=== PATIENT | male | born 1965 | race Caucasian/White ===

== ENCOUNTER 2025-02-16 16:58 | Emergency (ER) | payer OTHER, SELFPAY ==
[2025-02-16 17:04] VITALS: BP 143/83; PULSE 84; RESP 16; TEMP 36.4; O2SAT 96; BMI 33.2
--- OUTSIDE RECORDS SUMMARY | 2025-02-16 17:05 | XMS_ITS | Encounter Summary ---
Author Organization [facility] of [facility] and Its Subsidiaries and Affiliates Address [address] [address] [place] [address] Care Team Providers Care Hydraulic Boom Operator Name Role Phone Pcp, Not Known Primary Care Provider Unavailabl e Encounter Details Date Type Department Care Team (Late st Contact Info) Description 07/27/2022 Procedure Pass [facility] [address] [facility] [place] [id number] Social History Tobacco Use Types Packs/Day Years Used Date Smoking Tobacco: Never Smokeless Tobacco: Never Alcohol Use Standard Drinks/Week Comments Not Currently 0 (1 standard drink = 0.6 oz pur e alcohol) 2-3 drinks weekly Sex and Gender Information Value Date Recorded Sex Assigned at Not on file Legal Sex Male 10:45 PM CDT Gender Identity Not on file Sexual Orientation Not on file COVID-19 Exposure Response Date Recorded In the last 10 days, have yo u been in contact with someone who was confirmed or suspected to have Coronavirus/COVID-19? No / Unsure 07/27/2022 12:35 AM CORRESPONDENCE SPECIALIST documented as of this encounter Plan of Treatment Not on file documented as of this encounter Visit Diagnoses Not on filedocumented in this encounter Additional Health Concerns Infection Onset Date Last Indicated Resolved Time Rule Out COVID-19 06/26/2023 06/26/2023 06/26/2023 11:28 AM CORRESPONDENCE SPECIALIST documented as of this encounter Care Teams Hydraulic Boom Operator Relationship Specialty Start Date End Date Pcp, Not Known PCP - General 10/05/22 documented as of this encounter
--- OUTSIDE RECORDS SUMMARY | 2025-02-16 17:05 | XMS_ITS | Patient Health Record ---
Author Organization [facility] Address [address] [facility] [address] [place] [address] Care Team Providers Care Shaft Headman Name Role Phone Self, Self Primary Care Provider Unavailabl e Allergies No Known Allergies Reason For Referral No Information Medications Medication SIG (Take, Route, Fr equency, Duration) Notes Start Date End Date Status Cephalexin 500 MG 1 capsule Orally Twi ce a day for 10 03/06/2023 Active Tamsulosin HCl 0.4 MG TAKE 1 CAPSULE BY MOUTH EVERY DAY Oral for 90 Days Active Meloxicam 15 MG Oral for 90 Days Active Social History Tobacco Use: Social History Observation Description Date Details (start date - stop date) Never Smoker NA - NA *DO NOT USE*Tobacco Use/Smoking Question Answer Notes Are you a nonsmoker Plan Of Treatment No Information Insurance Providers Payer Name Payer Address Payer Phone Subscriber Number Group Number Insured Name Patient Relationship to Insured Coverage Start Date Coverage End Date [facility] [address] [place] [address] [id number] Mark Catalan Self - patient is the insured
--- OUTSIDE RECORDS SUMMARY | 2025-02-16 17:05 | XMS_ITS | Clinical Summary ---
Author Organization Therese Suffolkkirby miller of [facility] and Its Subsidiaries and Affiliates Address [address] [address] [place] [address] Care Team Providers Care Lumber Carrier Operator Name Role Phone Pcp, Not Known Primary Care Provider Unavailabl e Allergies No known active allergies Medications * Be aware that medications may not be up to date as of this document.Always verify current medications with patient. tamsulosin (FLOMAX) 0.4 mg Capsule Take 1 capsule by mouth in the morning. Active cholecalciferol (Vitamin D3) 50 mcg (2,000 unit) Tablet Take 1 tablet by mouth. 05/11/2024 Active azithromycin (ZITHROMAX) 250 mg tablet Take 1 tablet by mouth in the morning. Take 2 tablets (500mg) once today (on Day1), followed by 1 tablet (250mg) once daily on Day 2 through 5. 6 tablet 08/14/2024 Active Active Problems Problem Noted Date Diagnosed Date Other chest pain 10/05/2022 Family History Medical History Relation Comments Suicidality Father Cancer Mother Relation Status Comments Father Mother Social History Tobacco Use Types Packs/Day Years Used Date Smoking Tobacco: Never Smokeless Tobacco: Never Tobacco Cessation:Counseling Given: Not Answered Alcohol Use Standard Drinks/Week Comments Yes 0 (1 standard drink = 0.6 oz pur e alcohol) 2-3 drinks weekly Sex and Gender Information Value Date Recorded Sex Assigned at Not on file Legal Sex Male 10:45 PM CDT Gender Identity Not on file Sexual Orientation Not on file Last Filed Vital Signs Vital Sign Reading Time Taken Comments Blood Pressure 106/55 08/14/2024 1:53 PM COMFORT ADVISOR Pulse 73 08/14/2024 1:53 PM COMFORT ADVISOR Temperature 36.2 C (97.2 F) 08/14/2024 1:53 PM COMFORT ADVISOR Respiratory Rate 18 08/14/2024 1:53 PM COMFORT ADVISOR Oxygen Saturation 98% 08/14/2024 1:53 PM COMFORT ADVISOR Inhaled Oxygen Concentration - - Weight 111.1 kg (245 lb) 06/26/2023 10:59 AM COMFORT ADVISOR Height 182.9 cm (6') 06/26/2023 10:59 AM COMFORT ADVISOR Body Mass Index 33.23 06/26/2023 10:59 AM COMFORT ADVISOR Plan of Treatment Health Maintenance Due Date Last Done Comments CT Colonography 1965 Cologuard 1965 Colonoscopy 1965 Colorectal Cancer Screening 1965 DIABETIC FOOT EXAM 1965 DIABETIC RETINAL EXAM 1965 FIT 1965 FOBT 1965 Flexible Sigmoidoscopy 1965 HEMOGLOBIN A1C 1965 Hepatitis C Screening 1981 Pneumococcal Vaccine: 50+ Years (1 of 1 - PCV) 2013 ZOSTER VACCINE (2 of 2) 08/05/2022 06/10/2022 COVID-19 Vaccine (1 - 2023-2 5 season) 2024 INFLUENZA VACCINE 03/16/2025 06/10/2022, 05/18/2020 RSV Vaccines (1 - 1-dose 75+ series) 2038 RSV UNDER 20 MONTHS Aged Out No longe r eligible based on patient's age to complete this topic Insurance [facility] Care Teams Lumber Carrier Operator Relationship Specialty Start Date End Date Pcp, Not Known PCP - General 10/05/22
--- OUTSIDE RECORDS SUMMARY | 2025-02-16 17:05 | XMS_ITS | Encounter Summary ---
Author Organization [facility] and Its Subsidiaries and Affiliates Address [address] [address] [place] [address] Care Team Providers Care Packing Attendant Name Role Phone Pcp, Not Known Primary Care Provider Unavailabl e Encounter Details Date Type Department Care Team (Late st Contact Info) Description 10/05/2022 [facility] Returned Goods Inspector [address] [place] [address] Social History Tobacco Use Types Packs/Day Years Used Date Smoking Tobacco: Never Smokeless Tobacco: Never Alcohol Use Standard Drinks/Week Comments Yes 0 [...] suspected to have Coronavirus/COVID-19? No / Unsure 10/05/2022 10:08 AM LEASE BUYER documented as of this encounter Plan of Treatment Not on file documented as of this encounter Visit Diagnoses Not on filedocumented in this encounter Additional Health Concerns Infection Onset Date Last Indicated Resolved Time Rule Out COVID-19 06/26/2023 06/26/2023 06/26/2023 11:28 AM LEASE BUYER documented as of this encounter Care Teams Packing Attendant Relationship Specialty Start Date End Date Pcp, Not Known PCP - General 2/20/23 documented as of this encounter
--- OUTSIDE RECORDS SUMMARY | 2025-02-16 17:05 | XMS_ITS | Patient Health Record ---
Author Organization [facility] Address [address] [place], [place] [id number] Care Team Providers Care Boring Mill Set Up Operator Vertical Name Role Phone Eleno WALLS Primary Care Provider Unavailab blair Rodriguez MD, Valdez Unavailable [phone] Reason For Referral No Information Medications Medication SIG (Take, Route, Frequency, Duration) Notes Start Date End Date Status Robaxin 500 mg 1 tab orally QHS, MO N for 5 day(s) Active naproxen 500 mg 1 tab orally BID, MO N with food for 30 day(s) Active niacin 250 mg 1 tab orally QHS for 30 day(s) Active omega-3 polyunsaturated fatt y acids 1000 mg 2 caps orally BID for 30 day(s) Active omeprazole 20 mg 1 cap orally QAM for 30 day(s) Active raNITIdine 150 mg 1 tab orally 2 times a day for 30 day(s) Active Problems Problem Type SNOMED Code ICD Code Onset Dates Problem Status W/U Status Risk Notes Problem Spasm (81958679) Muscle spasm (728.85) Active confirmed Problem Sleep dysfunction with sleep stage disturbance (771579070) Dysfunctions associated with sleep stages or arousal from sleep (780.56) Active confirmed Problem Long-term drug therapy (617090905) LONG-TERM USE MEDS NEC (V58.69) Active confirmed r/o substance abuse Problem Displacement of cervical intervertebral disc without myelopathy (30214347) Cervical (w/out myelopathy) intervertebral disc disorder (722.0) Active confirmed Problem Neck pain (56983906) Neck pain (723.1) Active confirmed Plan Of Treatment No Information Insurance Providers Payer Name Payer Address Payer Phone Subscriber Number Group Number Insured Name Patient Relationship to Insured Coverage Start Date Coverage End Date [facility] [address] [place] [id number] Mark Caatlan Jr. Self - patient is the insured Medical (General) History Medical History History ICD Code Neck pain Headache Seborrheic keratosis Arthritis Hyperlipidemia Elevated LFT Hemorrhoids Shoulder pain Chest pain Gastroesophageal reflux disease Right shoulder impingement Hospitalization History Reason Date(Month/Year) Concussion, due to a fall ([place]) 2004
[2025-02-16] MEDS: lidocaine 2% INJ 20 mL INJECTION (19:51)
--- NOTE | 2025-02-16 19:59 | W.ED.WOUNDLC ---
HPI - Wound/Laceration General: Chief Complaint: Wound/Laceration Stated Complaint: Filet knife in hand, deep cut Time Seen by Provider: 02/16/25 17:29 History of Present Illness: 59-year-old male patient presents to the emergency department with a laceration to the palmar surface of his left hand. Patient states he punctured it with a knife. Patient has full range of motion. Patient states his tetanus is not up-to-date. Patient arrives with bleeding controlled Related Data Home Medications ?Medication ?Instructions ?Recorded ?Confirmed tamsulosin 0.4 mg capsule 0.4 mg PO DAILY 02/16/25 02/16/25 Allergies Allergy/AdvReac Type Severity Reaction Status Date / Time No Known Allergies Allergy Verified 02/16/25 17:10 Review of Systems General: Reports: 10 or more systems reviewed and unremarkable except in HPI and below Physical Exam Narrative: EXAM NARRATIVE: 1 cm linear laceration to the palmar surface of the left hand neurovascularly intact distally full range of motion Const: COMMON NORMALS: no acute distress, patient oriented x3, no limitations, alert and well nourished Resp: COMMON NORMALS: normal respiratory effort Cardio: COMMON NORMALS: regular rate RATE: regular rate Neuro: COMMON NORMALS: patient oriented x3 SENSORIUM/ORIENTATION: Yes alert Procedures Laceration Laceration 1: Site: hand Side (If applicable): left Size (cm): 1 Description: linear Local Anesthetic: lidocaine 1% Amount of anesthesia used (mL): 3 Pre-repair: wound explored and irrigated extensively Skin layer closed with: nylon Size (cm): 5-0 Number of sutures: 3 Technique: simple, interrupted Course Vital Signs: Vital signs: Vital Signs Temperature 97.5 F L 02/16/25 17:04 Pulse Rate 84 02/16/25 17:04 Respiratory Rate 16 02/16/25 17:04 Blood Pressure 143/83 02/16/25 17:04 Pulse Oximetry 96 02/16/25 17:04 Oxygen Delivery Me thod Room Air 02/16/25 17:04 MDM - Wound/Laceration Medical Decision Making 59-year-old male patient presents to the emergency department with a laceration to the palmar surface of his left hand. Patient states he punctured it with a knife. Patient has full range of motion. Patient states his tetanus is not up-to-date. Patient arrives with bleeding controlled patient is neurovascularly intact distally patient has good battery recharger strength patient has full range of motion. Tetanus was updated at today's visit I do not feel antibiotics are warranted at this time. Please see procedure note for laceration repair I did review home care instructions with patient as well as follow-up and return precautions patient is medically cleared and appropriate for discharge No radiology studies performed this visit Discharge Plan Discharge Patient Disposition: Home Clinical Impression: Laceration Condition: Stable Prescriptions: No Action tamsulosin 0.4 mg capsule 0.4 mg PO DAILY Discharge Orders: Discharge ED (Routine); Ordered 02/16/25 Ordered By: Syeda Milian Patient Instructions: Opioid Safety, Pain Management, Patient Portal & Javi Instructions, Laceration (ED), Laceration (DC) Activity Restrictions/Additional Instructions: Please return to the emergency department in 8 to 10 days for suture removal or sooner if there is any evidence of infection such as increased erythema drainage from the site or any other concerns. Please follow wound care instructions as provided Print Language: Austrian Coding Level of Care Code ED Dynamics Ax Solution Architect for Hannah Hicks
[2025-02-16] MEDS: tetanus-diphtheria tox (adult) 0.5 mL SDV IM (20:13)
== END 2025-02-16 20:21 | disposition home or self-care (01) ==
PROVIDERS: Emergency Provider Registered Nurse
DX: S61.412A Laceration without foreign body of left hand, initial encounter (principal); W26.0XXA Contact with knife, initial encounter
CPT/HCPCS: 12001; 90471; 90714; 99283; J9999

== ENCOUNTER 2025-08-11 13:52 | Emergency (ER) | payer OTHER, SELFPAY ==
--- OUTSIDE RECORDS SUMMARY | 2024-10-16 02:00 | XMS_ITS ---
Author Organization [facility] Address [address] [facility] [address] [place] [address] Care Team Providers Care Outside Sales Representative Name Role Phone Thanh Grupo Unavailable [phone] Mary Fischer Unavailable Unavailab le Encounters Encounter Location Date Provider Diagnosis [facility] [address] [place] [address] 10/16/2024 Grupo Law Plan Of Treatment No Information Progress Notes * Agata CATALAN JRhDOB: [birth year] (60 yo M)Acc No.[id number]:10/16/2024 Patient: Lauren Mark cano Jr Provider: Lauren Law MD :1965 A ge:59 Y S ex:Male Date:10/16/2024 Address:[address] [place], [place] [id number] * Electronic signature of Dakota Law on 08/11/2025 at 02:00 PM FLORAL ARRANGER Sign off status: Pending * Provider: Lauren Law MD Date: 0 10/16/2024 Generated for Rci suzanne/Petros/eTransmitting on: 1 10/12/2024 02:00 PM FLORAL ARRANGER
--- OUTSIDE RECORDS SUMMARY | 2025-01-20 03:00 | XMS_ITS ---
Author Organization [employer] Address [address] [facility] [address] [place] [address] Care Team Providers Care Middle School Assistant Principal Name Role Phone Grupo Law Unavailable [phone] Mary Fischer Unavailable Unavailab le Migration, Provider Unavailable Unavailable REASON FOR VISIT EMR-Tommy Encounters Encounter Location Date Provider Diagnosis Migrated_Facility 0 0 01/20/2025 Provider Migration Plan Of Treatment Medication Medication Name Sig Start Date Stop Date Notes DULoxetine HCl 60 MG Capsule Delayed Release Particles 1 capsule by mouth once a day Oral 09/29/2022 Tamsulosin HCl 0.4 MG Capsule Oral Meloxicam 15 MG Tablet Oral 09/29/2022 Ondansetron HCl 8 MG Tablet Oral 09/28/19 23 Vitamin D3 10 MCG (400 UNIT) Tablet Oral 09/29/2022 HYDROcodone-Acetaminophen 10-325 MG Tablet Oral 09/28/2022 Nitroglycerin 0.[address] 1 tablet under tongue as needed for chest pain; max 3 doses; ER with unrelieved cp Sublingual 09/29/2022 10/14/2023 Progress Notes * Agata CATALAN JRhDOB: [birth year] (60 yo M)Acc No.[id number]:01/20/2025 Patient: Lauren Mark POP JR :1965 A ge:59 Y S ex:Male Address:[address] [place], [place] [address], [address] * Refills Stop HYDROcodone-Acetaminophen Tablet, 10-325 MG, Oral Stop Meloxicam Tablet, 15 MG, Oral Stop Ondansetron HCl Tablet, 8 MG, Oral Stop HYDROcodone-Acetaminophen Tablet, 10-325 MG, Oral Stop Nitroglycerin Tablet Sublingual, 0.4 MG, Sublingual, Place 1 tablet under tongue as needed for chest pain; max 3 doses; ER with unrelieved cp Stop DULoxetine HCl Capsule Delayed Release Particles, 60 MG, Oral Stop Vitamin D3 Tablet, 10 MCG (400 UNIT), Oral Stop Vitamin D3 Tablet, 10 MCG (400 UNIT), Oral Stop Ondansetron HCl Tablet, 8 MG, Oral Stop DULoxetine HCl Capsule Delayed Release Particles, 60 MG, Oral, 1 capsule by mouth once a day Stop Meloxicam Tablet, 15 MG, Oral Stop Nitroglycerin Tablet Sublingual, 0.4 MG, Sublingual, Place 1 tablet under tongue as needed for chest pain; max 3 doses; ER with unrelieved cp Stop Tamsulosin HCl Capsule, 0.4 MG, Oral Subjective: * Chief Complaints: * E MR-Tommy * * Date:
--- OUTSIDE RECORDS SUMMARY | 2025-01-21 03:00 | XMS_ITS ---
Author Organization [employer] [facility] Address [address] [facility] [place] [facility] [address] [place] [address] Care Team Providers Care Technology Analyst Name Role Phone Grupo Law Unavailable [phone] Mary Fischer Unavailable Unavailab le Migration, Provider Unavailable Unavailable Allergies No Known Allergies REASON FOR VISIT EMR-Tommy Medications Medication SIG (Take, Route, Frequency, Duration) Notes Start Date End Date Status GoodSense Aspirin 81 MG Tablet Chewable Take 1 tablet by mouth once a day Oral 09/29/2022 Active Tamsulosin HCl 0.4 MG Capsule 1 capsule by mouth once a day Oral Active Multi-Vitamin HP/Minerals - Capsule 1 capsule by mouth once a day Oral Active Social History Social History Additional Details Category Social Info Options Details Migrated Social History Migrated Social History alcohol use : yes , chewing tobacco use : Never , drug use : no , if the patient is using/has used a vaping item, Current, Former, Never Used, Not asked : Never , passive cigarette smoke exposure : no , personal history of marijuana use : no , smoking status : Never smoker , social history : Patient has never smoked.; Patient has never used smokeless tobacco.; Patient has never used vaping / e-cigarette.; Passive Smoke: N; Alcohol Use: Y; Drug Use: N; Marijuana Use: N; HIV/High Risk: N; Regular Exercise: Y; Hx Domestic Abuse: N; Anabaptist Affecting Care: N; Sexually Active: N Encounters Encounter Location Date Provider Diagnosis Migrated_Facility 0 0 01/21/2025 Provider Migration Plan Of Treatment No Information Progress Notes * Agata CATALAN JRhDOB: [birth year] (60 yo M)Acc No.[id number]:01/21/2025 Patient: Mark ALMEIDA JR :1965 A ge:59 Y S ex:Male Address:[address] [place] [address] Subjective: * Chief Complaints: * E MR-Tommy * Medical History: Cataracts Enlarge prostate Migraines * Surgical History: Colonoscopy 07/16/2018 (normal study) PAST SurgHX Till 10/12/2022 [facility] 10/05/2022 PAST SurgHX Till 10/12/2022 LT eye cataracts removed 01/03/2019 PAST SurgHX Till 10/12/2022 RT eye cataracts removed 01/14/2021 PAST SurgHX Till 10/12/2022 * Family History: F ather: Hypertension : .. M igrated Family History: : family history : mother D54 -lung cafather D55- htnbrother 1L-healthysister 1L-cancer(remission) . * Social History: M igrated Social History: M igrated Social History: alcohol use : yes , chewing tobacco use : Never , drug use : no , if the patient is using/has used a vaping item, Current, Former, Never Used, Not asked : Never , passive cigarette smoke exposure : no , personal history of marijuana use : no , smoking status : Never smoker , social history : Patient has never smoked.; Patient has never used smokeless tobacco.; Patient has never used vaping / e-cigarette.; Passive Smoke: N; Alcohol Use: Y; Drug Use: N; Marijuana Use: N; HIV/High Risk: N; Regular Exercise: Y; Hx Domestic Abuse: N; Anabaptist Affecting Care: N; Sexually Active: N. * Medications: T akingTamsulosin HCl 0.4 MG Capsule 1 capsule by mouth once a day Oral GoodSense Aspirin 81 MG Tablet Chewable Take 1 tablet by mouth once a day Oral Multi- Vitamin HP/Minerals - Capsule 1 capsule by mouth once a day Oral Taking Tamsulosin HCl 0.4 MG Capsule 1 capsule by mouth once a day Oral Taking GoodSense Aspirin 81 MG Tablet Chewable Take 1 tablet by mouth once a day Oral Taking Multi-Vitamin HP/Minerals - Capsule 1 capsule by mouth once a day Oral * Allergies: N .K.D.A. * * Date:
--- OUTSIDE RECORDS SUMMARY | 2025-08-11 14:00 | XMS_ITS | Patient Health Record ---
Author Organization [facility] Address [address] [address] Care Team Providers Care Monkey Trainer Name Role Phone Self, Self Primary Care Provider Unavailabl e Allergies No Known Allergies Reason For Referral No Information Medications Medication SIG (Take, Route, Frequency, Duration) Notes Start Date End Date Status Cephalexin 500 MG Capsule 1 capsule Oral ly Twice a day; Duration: 03/06/2023 Active Tamsulosin HCl 0.4 MG Capsule TAKE 1 CAPSULE BY MOUTH EVERY DAY Oral; Duration: 90 Days Active Meloxicam 15 MG Tablet Oral; Duration: 90 Days Active Social History Tobacco Use: Social History Observation Description Date Details (start date - stop date) Never Smoker NA - NA Social History Tobacco Use: Social Info Question Answer Notes *DO NOT USE*Tobacco Use/Smoking Are you a nonsmoker Plan Of Treatment No Information Insurance Providers Payer Name Payer Address Payer Phone Subscriber Number Group Number Insured Name Patient Relationship to Insured Coverage Start Date Coverage End Date [facility] [address] [place] [id number] Mark Catalan Self - patient is the insured
--- OUTSIDE RECORDS SUMMARY | 2025-08-11 14:00 | XMS_ITS | Patient Health Record ---
Author Organization [facility] Address [address] [facility] [address] [place] [address] Care Team Providers Care Take Away Worker Name Role Phone Grupo Law Unavailable [phone] Mary Fischer Unavailable Unavailab le Migration, Provider Unavailable Unavailable Allergies No Known Allergies Reason For Referral [...] Regular Exercise: Y; Hx Domestic Abuse: N; Yazdanism Affecting Care: N; Sexually Active: N Problems Problem Type SNOMED Code ICD Code Onset Dates Problem Status W/U Status Risk Notes Problem Hyperlipidemia (32276286) Hyperlipidemia, unspecified (E78.5) 10/12/19 23 Active confirmed Problem Hypersomnia (79875880) Other hypersomnia (G47.19) 10/14/19 24 Active confirmed Problem Obstructive sleep apnea syndrome (disorder) (61607682) Obstructive sleep apnea (adult) (pediatric) (G47.33) 12/31/19 24 Active confirmed Problem Cardiomegaly (0312303) Cardiomegaly (I51.7) 10/17/19 23 Active confirmed Problem Chest pain (40695988) Other chest pain (R07.89) 09/28/19 23 Active confirmed Problem Fatigue (19614205) Other fatigue (R53.83) 10/14/19 24 Active confirmed Problem Family history of ischemic heart disease (269206318) Family hx of ischem heart dis and oth dis of the circ sys (Z82.49) 09/29/19 23 Active confirmed Encounters Encounter Location Date Provider Diagnosis Migrated_Facility 0 0 01/20/2025 Provider Migration Migrated_Facility 0 0 01/21/2025 Provider Migration Plan Of Treatment No Information Insurance Providers Payer Name Payer Address Payer Phone Subscriber Number Group Number Insured Name Patient Relationship to Insured Coverage Start Date Coverage End Date [facility] [address] [place] [phone] [id number] Mark Catalan Jr Self - patient is the insured Medical (General) History Surgical History Surgery Date(Month/Year) Colonoscopy 07/16/2018 (normal study) PAS T SurgHX Till 10/12/2022 lhc 10/05/2022 PAST SurgHX Till LT eye cataracts removed 01/03/2019 PAST SurgHX Till 10/12/2022 RT eye cataracts removed 01/14/2021 PAST S urgHX Till 10/12/2022
--- OUTSIDE RECORDS SUMMARY | 2025-08-11 14:00 | XMS_ITS | Encounter Summary ---
Author Organization Therese Bertramkirby garcias of [facility] and Its Subsidiaries and Affiliates Address [address] [address] [place] [address] Care Team Providers Care Brick Maker Name Role Phone Pcp, Not Known Primary Care Provider Unavailabl e Encounter Details Date Type Department Care Team (Late st Contact Info) Description 07/27/2022 Procedure Pass [facility] [address] [facility] [place] [phone] Social History Tobacco Use Types Packs/Day Years [...] Coronavirus/COVID-19? No / Unsure 07/27/2022 12:35 AM PROSPECTING DRILLER HELPER documented as of this encounter Plan of Treatment Not on file documented as of this encounter Visit Diagnoses Not on filedocumented in this encounter Additional Health Concerns Infection Onset Date Last Indicated Resolved Time Rule Out COVID-19 06/26/2023 06/26/2023 06/26/2023 11:28 AM PROSPECTING DRILLER HELPER Rule Out Respiratory 06/28/2025 06/28/2025 025 1:51 PM PROSPECTING DRILLER HELPER documented as of this encounter Care Teams Brick Maker Relationship Specialty Start Date End Date Pcp, Not Known PCP - General 10/05/22 documented as of this encounter
--- OUTSIDE RECORDS SUMMARY | 2025-08-11 14:00 | XMS_ITS | Encounter Summary ---
Author Organization Therese Amoretkirby s of [facility] and Its Subsidiaries and Affiliates Address [address] [address] Ivan Velaz[place] [address] Care Team Providers Care Mantel Craftsman Name Role Phone Pcp, Not Known Primary Care Provider Unavailabl e Encounter Details Date Type Department Care Team (Late st Contact Info) Description 10/05/2022 [facility] [address] [place] [id number] Social History Tobacco Use Types Packs/Day [...] Coronavirus/COVID-19? 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
--- OUTSIDE RECORDS SUMMARY | 2025-08-11 14:00 | XMS_ITS | Clinical Summary ---
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
--- OUTSIDE RECORDS SUMMARY | 2025-08-11 14:00 | XMS_ITS | Clinical Summary ---
Author Organization [facility] of [facility] and Its Subsidiaries and Affiliates Address [address] [address] [place] [address] Care Team Providers Care Ceramics Engineer Name Role Phone Pcp, Not Known Primary Care Provider Unavailabl e Allergies No known active allergies Medications * Be aware that medications may not be up to date as of this document.Always verify current medications with patient. tamsulosin (FLOMAX) 0.4 mg Capsule Take 1 capsule by mouth in the morning. Active Active Problems Problem Noted Date Diagnosed Date Other chest pain 10/05/2022 Encounters Date Type Department Care Team Description 06/28/2025 1:05 PM MOTORS ASSEMBLER Office Visit [facility] [address] [place] [address] [place] [id number] Bette Perry PA Flu-like symptoms (Primary Dx); Exposure to influenza; Viral illness 06/28/2025 History [facility] [address] [place] [id number] Bette Perry PA from Last 3 Months Family History Medical History Relation Comments Suicidality [...] Sign Reading Time Taken Comments Blood Pressure 130/68 06/28/2025 1:28 PM MOTORS ASSEMBLER Pulse 92 06/28/2025 1:28 PM MOTORS ASSEMBLER Temperature 37.1 C (98.7 F) 06/28/2025 1:28 PM MOTORS ASSEMBLER Respiratory Rate 18 08/14/2024 1:53 PM MOTORS ASSEMBLER Oxygen Saturation 97% 06/28/2025 1:28 PM MOTORS ASSEMBLER Inhaled Oxygen Concentration - - Weight 111.1 kg (245 lb) 06/28/2025 1:28 PM MOTORS ASSEMBLER Height 182.9 cm (6') 06/26/2023 10:59 AM MOTORS ASSEMBLER Body Mass Index 33.23 06/26/2023 10:59 AM MOTORS ASSEMBLER Plan of Treatment Health Maintenance Due Date Last Done Comments CT Colonography 1965 Cologuard 1965 Colonoscopy 1965 Colorectal Cancer Screening 1965 FIT 1965 FOBT 1965 Flexible Sigmoidoscopy 1965 Hepatitis C Screening 1965 Pneumococcal Vaccine: 50+ Years (1 of 1 - PCV) 2013 DTaP/Tdap/Td Vaccines (2 - Td or Tdap) 10/20/2013 09/22/2013 INFLUENZA VACCINE 03/16/2025 06/10/2022, , 05/18/2020, Additional history exists COVID-19 Vaccine (3 - season) 2025 12/12/2020, 11/14/2020 RSV Vaccines (1 - 1-dose 75+ series) 2038 ZOSTER VACCINE Completed 06/10/2022, 11/28/2021 Hepatitis B Vaccines Aged Out No long er eligible based on patient's age to complete this topic RSV UNDER 20 MONTHS Aged Out No longe r eligible based on patient's age to complete this topic Procedures Procedure Name Priority Date/Time Associated Diagnosis Comments POCT INFLUENZA A/B Routine 06/28/2025 1: 50 PM MOTORS ASSEMBLER Flu-like symptoms from Last 3 Months Results * POCT Binax Influenza A/B (06/28/2025 1:50 PM MOTORS ASSEMBLER) Rapid Influenza A Ag Negative Negative, Valid, Invalid, Indeterminat e, Trace, Not Applicable, CHARGE YES, CHARGE NO, see note, Detected, Not Detected, Equivocal, Weakly Positive, Low Positive, Strong Positive, Passed, Failed, No Previous Internal Control Rapid Influenza A Ag Valid Rapid Influenza B Ag Negative Negative, Valid, Invalid, Indeterminat e, Trace, Not Applicable, CHARGE YES, CHARGE NO, see note, Detected, Not Detected, Equivocal, Weakly Positive, Low Positive, Strong Positive, Passed, Failed, No Previous Internal Control Rapid Influenza B Ag Valid 06/28/2025 1:50 PM MOTORS ASSEMBLER Bette MCLAUGHLIN POINT OF CARE TEST ORDERAB LES Final Result from Last 3 Months Insurance Care Teams Ceramics Engineer Relationship Specialty Start Date End Date Pcp, Not Known PCP - General 10/05/22
[2025-08-11 14:03] VITALS: BP 111/69; PULSE 78; RESP 16; TEMP 36.7; O2SAT 97; BMI 33.2
--- NOTE | 2025-08-11 14:06 | XRR_ITS ---
PROCEDURE INFORMATION: Exam: XR Chest Exam date and time: 08/11/2025 2:10 PM Age: 60 years old Clinical indication: Other: syncope TECHNIQUE: Imaging protocol: Radiologic exam of the chest. Views: 1 view. COMPARISON: No relevant prior studies available. FINDINGS: Lungs: Lungs are well aerated. Pulmonary vascularity is normal. No suspicious pulmonary nodule/s. No focal consolidation is appreciated. Pleural spaces: No pleural effusion. No pneumothorax. Heart/Mediastinum: Unremarkable. No cardiomegaly. Bones/joints: Unremarkable. XR/XR chest 1V portable [id number] IMPRESSION: No acute findings.
--- NOTE | 2025-08-11 14:06 | ECG_ITS ---
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
--- NOTE | 2025-08-11 14:14 | CTR_ITS ---
PROCEDURE INFORMATION: Exam: CT Head Without Contrast Exam date and time: 08/11/2025 2:18 PM Age: 60 years old Clinical indication: Pain; Syncope and collapse; Headache not specified; Additional Info: syncope/HARMON TECHNIQUE: Imaging protocol: Computed tomography of the head without contrast. Radiation optimization: All CT scans at this facility use at least one of these dose optimization techniques: automated exposure control; mA and/or kV adjustment per patient size (includes targeted exams where dose is matched to clinical indication); or iterative reconstruction. COMPARISON: No relevant prior studies available. RADIATION DOSE METRICS: Total DLP (mGy-cm): 1248.28 FINDINGS: Brain: There is no evidence of mass, mass effect or midline shift. Basilar cisterns and cortical sulci are within normal limits for age. No acute intracranial hemorrhage or definite ischemic change identified. No abnormal intra-axial or extra-axial fluid collections are appreciated. Brain parenchyma is of normal density and aguilar-white matter differentiation. Cerebral ventricles: Ventricles are within normal limits for age. Paranasal sinuses: No significant paranasal sinus disease. Mastoid air cells: No mastoid or middle ear mass or fluid. Bones: No fractures are identified. Soft tissues: Unremarkable. CT/CT head wo con* [id number] IMPRESSION: No evidence of intracranial mass or acute disease.
--- NOTE | 2025-08-11 14:16 | W.ED.SYNCOPE ---
HPI - Syncope General: Chief Complaint: Syncope Stated Complaint: Dizzy Lightheaded Weakness Time Seen by Provider: 08/11/25 14:06 Source: patient Mode of arrival: ambulatory Limitations: no limitations History of Present Illness: Patient is a 60-year-old male with no pertinent past medical history reporting to the emergency department due to a syncopal episode that occurred just 15 minutes prior to arrival to the ED. He states that he has been feeling unwell all day, including headache and sore throat and felt that he was coming out with a cold. He tells me that he was at the [employer] for a [employer] when he suddenly passed out, with preceding symptoms of dizziness and lightheadedness. At this time he states he has a mild headache and sore throat still but no symptoms. He has no chest pain or shortness of breath, has had no palpitations. No focal neurological symptoms are reported to me either. He did not hit his head or suffer any other injuries from the syncopal event. There is no prolonged downtime, he is not on any blood thinners. Denies any recent fevers or chills. He has no nausea or vomiting. Currently his vitals are all stable, afebrile. He sees primary [facility] and [facility]. MD complaint: other (syncope) Onset (ago): minute(s) Prodromal symptoms: other (Dizzy, lightheaded) Witnessed: Yes - by Bystander Context: during exertion Associated symptoms: Reports headache(s) and lightheadedness; Deny abdominal pain, chest pain, fever(s) or nausea Related Data Home Medications ?Medication ?Instructions ?Recorded ?Confirmed tamsulosin 0.4 mg capsule 0.4 mg PO QAM 02/16/25 08/11/25 pseudoephedrine-ibuprofen 30 1 tab PO Q4H PRN Cold Symptoms 08/11/25 08/11/25 mg-200 mg tablet Allergies Allergy/AdvReac Type Severity Reaction Status Date / Time No Known Allergies Allergy Verified 08/11/25 14:05 Review of Systems General: Reports: 10 or more systems reviewed and unremarkable except in HPI and below Const: Denies: fever(s), chills or fatigue Eyes: Denies: change in vision ENMT: Reports: throat pain; Denies: ear or mastoid pain or nasal discharge Card: Reports: lightheadedness and syncope; Denies: chest pain, palpitations or swelling of feet/ankles Resp: Denies: dyspnea, productive cough or wheezing GI: Denies: abdominal pain, nausea, vomiting, diarrhea or constipation : Denies: flank pain, difficulty urinating, dysuria or urinary frequency Musc: Denies: neck pain, back pain or joint pain Skin/Breast: Denies: rash Neuro: Reports: headache(s) and dizziness; Denies: numbness in extremities, weakness in extremities, difficulty walking, confusion, Slurred speech present, seizure-like activity or involuntary movements Physical Exam Const: COMMON NORMALS: no acute distress, patient oriented x3 and no limitations GENERAL APPEARANCE: cooperative, comfortable and well developed ORIENTATION/CONSCIOUSNESS: Yes awake, Yes oriented to person, Yes oriented to place and Yes oriented to time HENMT: COMMON NORMALS: normocephalic, atraumatic, hearing grossly normal bilaterally and moist oral mucous membranes HEAD & SCALP: normocephalic and atraumatic THROAT: posterior oropharynx normal Eye: COMMON NORMALS: Equal, round and reactive pupils present, EOMs intact bilaterally and conjunctivae normal CONJUNCTIVA: Yes conjunctivae normal PUPIL: Yes Equal, round and reactive pupils present Neck/C-Spine: COMMON NORMALS: full ROM, supple and no JVD Resp: COMMON NORMALS: normal respiratory effort, No retractions, No use of accessory muscles and clear to auscultation bilaterally AUSCULTATION: clear to auscultation bilaterally Cardio: COMMON NORMALS: no JVD, regular rate, regular rhythm, No clicks present (Cardio), No murmurs present (Cardio) and No rub (Cardio) RATE: regular rate RHYTHM: regular rhythm GI: COMMON NORMALS: Normal to inspection, nondistended, normoactive bowel sounds present, Soft to palpation and non-tender AUSCULTATION: Yes normoactive bowel sounds PALPATION: Yes Soft to palpation RECTAL EXAM: Yes deferred Extremity: COMMON NORMALS: normal to inspection, full ROM and capillary refill normal Neuro: COMMON NORMALS: patient oriented x3, CN's II-XII intact bilaterally, moves all extremities, no focal motor deficits and no sensory deficits noted SENSORIUM/ORIENTATION: Yes oriented to person, Yes oriented to place and Yes oriented to time Skin: COMMON NORMALS: no rashes or lesions noted GENERAL SKIN EXAM: no rashes or lesions noted Course Vital Signs: Vital signs: Vital Signs Temperature 98.0 F 08/11/25 14:03 Pulse Rate 82 08/11/25 14:40 Respiratory Rate 16 08/11/25 14:03 Blood Pressure 127/64 08/11/25 14:40 Pulse Oximetry 98 08/11/25 14:40 Oxygen Delivery Me thod Room Air 08/11/25 14:03 MDM - Syncope Medical Decision Making Patient presented for evaluation of a syncopal episode, preceded by symptoms of dizziness and lightheadedness. Tells me that this had happened to him years prior, but did not get checked out at that time. He arrives with no complaints other than a mild headache and some general upper respiratory symptoms of sore throat. Vitals have been stable. No complaints of chest pain or shortness of breath. Did not report many cardiac history, [facility] checkups with cardiology. His chest x-ray is normal. Head CT with no evidence of mass or acute disease. Blood work is all reassuring, his troponin is negative. His viral swab does show positivity of COVID, and likely the syncopal event was vasovagal in response to the stress from the viral illness. I have minimal concern that this is cardiac or neurologic in origin, he is given IV fluids for possible dehydration component and overall is stable for discharge home as we discussed quarantine and other COVID precautions and symptomatic therapy. Patient agrees with this plan and is stable for discharge home at this time. Lab Data 08/11/25 14:29 08/11/25 14:29 Radiology Impressions Chest X-Ray 08/11/25 14:06 IMPRESSION: No acute findings. Head CT 08/11/25 14:14 IMPRESSION: No evidence of intracranial mass or acute disease. Laboratory Results WBC 6.48 10^3/uL (3.29-11.43) 08/11/25 14: RBC 4.48 10^6/uL (3.85-5.65) 08/11/25 14:29 Hgb 14.30 g/dL (11.27-16.99) 08/11/25 14:29 Hct 41.5 % (37-53) 08/11/25 14: MCV 92.6 fl (82-101) 08/11/25 14:29 MCH 31.9 pg (27-33) 08/11/25 14: MCHC 34.5 g/dL (30-55) 08/11/25 14: RDW 12.2 % (12.1-15.1) 08/11/25 14: Plt Count 151 10^3/cmm (157-399) L 08/11/25 14: MPV 10.3 fL (7.4-10.4) 08/11/25 14: Neut % (Auto) 79.8 % 08/11/25 14: Lymph % (Auto) 10.0 % 08/11/25 14: [place] % (Auto) 8.3 % 08/11/25 14: Eos % (Auto) 0.8 % 08/11/25 14: Baso % (Auto) 0.8 % 08/11/25 14: Neut # (Auto) 5.17 10^3/uL (1.8-7.7) 08/11/25 14: Lymph # (Auto) 0.7 10^3/uL (0.8-4.8) L 08/11/25 14: [place] # (Auto) 0.5 10^3/uL (0.2-0.9) 08/11/25 14: Eos # (Auto) 0.1 10^3/uL (0.0-0.8) 08/11/25 14: Baso # (Auto) 0.1 10^3/uL (0.0-0.1) 08/11/25 14: Nucleated RBC % (auto) 0 % 08/11/25 14: Nucleated RBCs # 0.0 /100WBC 08/11/25 14: Sodium 137 mmol/L (136-145) 08/11/25 14: Potassium 4.0 mmol/L (3.5-5.1) 08/11/25 14: Chloride 101 mmol/L (98-107) 08/11/25 14: Carbon Dioxide 25 mmol/L (22-29) 08/11/25 14: Anion Gap 15.0 (5-19) 08/11/25 14: BUN 12 mg/dL (8-23) 08/11/25 14: Creatinine 1.1 mg/dL (0.7-1.2) 08/11/25 14:29 GFR Calculation 67.8 mL/min (90-130) L 08/11/25 14:29 Glucose 165 mg/dL (65-115) H 08/11/25 14:29 Calculated Osmolality 287 mOsm/kg (285-295) 08/11/25 14:29 Calcium 9.1 mg/dL (8.5-10.5) 08/11/25 14:29 Magnesium 1.8 mg/dL (1.7-2.3) 08/11/25 14:29 Total Bilirubin 1.1 mg/dL (0.15-1.2) 08/11/25 14:29 AST 46 U/L (0-40) H 08/11/25 14:29 ALT 44 U/L (0-41) H 08/11/25 14:29 Alkaline Phosphatase 90 U/L (40-130) 08/11/25 14:29 Troponin T Baseline 7 ng/L (0-15) 08/11/25 14:29 Total Protein 6.5 g/dL (6.6-8.7) L 08/11/25 14:29 Albumin 4.5 g/dL (3.5-5.2) 08/11/25 14:29 Globulin 2.0 g/dL (1.3-4.6) 08/11/25 14:29 Influenza A (PCR) Negative (Negative) 08/11/25 14:37 Influenza Type B (PCR) Negative (Negative) 08/11/25 14:37 RSV (PCR) Negative (Negative) 08/11/25 14:37 SARS-CoV-2 (PCR) Positive (Negative) A 08/11/25 14:37 All radiology interpretation(s) finalized by discharge Discharge Plan Discharge Patient Disposition: Home Clinical Impression: COVID-19, Vasovagal syncope Condition: Stable Prescriptions: No Action tamsulosin 0.4 mg capsule 0.4 mg PO QAM DayQuil Sinus Pressure/Pain 30-200 mg Tablet 1 tab PO Q4H PRN (Reason: Cold Symptoms) Discharge Orders: Discharge ED (Routine); Ordered 08/11/25 Ordered By: Phil Arechiga Patient Instructions: Patient Portal & Jvai Instructions Activity Restrictions/Additional Instructions: Discharge Instructions: COVID-19 and Vasovagal Syncope DISCHARGE INSTRUCTIONS Your Diagnoses: - COVID-19 (coronavirus infection) - Vasovagal syncope (fainting episode) What Happened: You came to the emergency department after experiencing dizziness, lightheadedness, and a fainting episode. You also had upper respiratory symptoms. Testing confirmed you have COVID-19. Your cardiac evaluation, head CT scan, troponin, blood work, and vital signs were all normal. Your fainting episode was determined to be vasovagal syncope, which is a common and benign type of fainting. COVID-19 Home Care Instructions: Isolation Requirements: - Stay home and isolate for at least 10 days from when your symptoms first started - You may end isolation after 10 days if you have been fever-free for at least 24 hours without fever-reducing medications AND your symptoms (cough, shortness of breath) have improved - Continue to wear a well-fitted mask around others for 5 additional days after ending isolation - Avoid contact with others, especially those at high risk for severe COVID-19 Symptom Management: - Rest and stay well-hydrated - You may use [id number] medications like acetaminophen or ibuprofen for fever, body aches, and headache - Monitor your oxygen levels if you have a pulse oximeter at home (normal is 95% or above) Vasovagal Syncope Instructions: Understanding Your Condition: Vasovagal syncope is the most common cause of fainting and is generally benign. It occurs when your body overreacts to certain triggers, causing your heart rate and blood pressure to drop suddenly Prevention Strategies: - Recognize warning signs: If you feel lightheaded, dizzy, sweaty, warm, or have vision changes, immediately sit or lie down to prevent falling and injury - Avoid triggers: Prolonged standing, warm environments, dehydration, and stressful situations - Stay hydrated: Drink plenty of fluids throughout the day - Increase salt intake: Unless you have high blood pressure, heart failure, or kidney disease, increasing your salt and fluid intake may help prevent future episodes - Physical counter-pressure maneuvers: If you feel symptoms coming on and cannot lie down, try leg crossing with muscle tensing, squatting, or tensing your arm and abdominal muscles Activity Restrictions: - Avoid driving for at least 1 month after this fainting episode - Avoid situations where fainting could cause injury (heights, operating heavy machinery, swimming alone) - Gradually resume normal activities as you feel better WHEN TO RETURN TO THE EMERGENCY DEPARTMENT: Seek immediate medical attention if you experience: COVID-19 Warning Signs: - Difficulty breathing or shortness of breath at rest - Persistent chest pain or pressure - New confusion or difficulty staying awake - Bluish lips or face - Oxygen saturation below 94% (if you have a pulse oximeter) - Inability to keep down fluids - Symptoms that improve and then suddenly worsen Syncope Warning Signs: - Another fainting episode - Fainting without warning symptoms - Chest pain, palpitations, or irregular heartbeat - Severe headache - Any injury from your fainting episode Follow-Up Care: - Contact your primary care doctor within 3-5 days - Continue to monitor your symptoms daily - Keep a record of any fainting episodes or warning symptoms to discuss with your doctor Questions? If you have questions or concerns, contact your primary care provider or call our nurse advice line. Important Reminders: - This is a benign condition, but prevention strategies are important to avoid injury from future episodes - Most people with COVID-19 recover at home with supportive care - Complete isolation as directed to prevent spreading COVID-19 to others Print Language: Kazakh Coding Level of Care Code ED It Associate for Hannah Hicks
[2025-08-11 14:38] VITALS: BP 118/70; BP 127/64; BP 139/75; PULSE 72; PULSE 82; PULSE 93
[2025-08-11 14:40] VITALS: BP 127/64; PULSE 82; O2SAT 98
[2025-08-11 14:52] LABS: Hematocrit 41.5 % (37-53); Hemoglobin 14.30 g/dL (11.27-16.99); Mean Corpuscular HGB Conc 34.5 g/dL (30-55); Mean Corpuscular Hemoglobin 31.9 pg (27-33); Mean Corpuscular Volume 92.6 fl (82-101); Nucleated Red Blood Cells % 0 %; Platelet Count 151 10^3/cmm (157-399); Red Blood Count 4.48 10^6/uL (3.85-5.65); White Blood Count 6.48 10^3/uL (3.29-11.43)
[2025-08-11 15:11] LABS: Troponin(5th) Baseline 7 ng/L (0-15)
[2025-08-11 15:14] LABS: Alanine Aminotransferase 44 U/L (0-41); Albumin Level 4.5 g/dL (3.5-5.2); Alkaline Phosphatase 90 U/L (40-130); Anion Gap 15.0 (5-19); Aspartate Amino Transferase 46 U/L (0-40); Blood Urea Nitrogen 12 mg/dL (8-23); Calcium 9.1 mg/dL (8.5-10.5); Carbon Dioxide 25 mmol/L (22-29); Chloride 101 mmol/L (98-107); Globulin 2.0 g/dL (1.3-4.6); Glucose 165 mg/dL (65-115); Magnesium 1.8 mg/dL (1.7-2.3); Osmolality Calculated 287 mOsm/kg (285-295); Potassium 4.0 mmol/L (3.5-5.1); Sodium 137 mmol/L (136-145); Total Protein 6.5 g/dL (6.6-8.7)
[2025-08-11 15:32] LABS: Respiratory Syncytial Virus Ce NEGATIVE (Negative)
[2025-08-11 15:42] VITALS: BP 130/69; PULSE 87; O2SAT 98
[2025-08-11 15:45] LABS: SARS-CoV-2 PCR Positive (Negative)
== END 2025-08-11 15:47 | disposition home or self-care (01) ==
PROVIDERS: Emergency Provider Physician Assistant
DX: U07.1 COVID-19 (principal); R55 Syncope and collapse; Z11.52 Encounter for screening for COVID-19
CPT/HCPCS: 36415; 70450; 71045; 80053; 83735; 84484; 85025; 87637; 93005; 96360; 99285; J7030